=== PATIENT | male | born 1985 | race Caucasian/White ===

== ENCOUNTER 2017-01-25 06:00 | Day surgery (SDC) | payer BC ==
[2017-01-25] MEDS ORDERED: Glycopyrrolate 0.2 MG/ML 2 ML SDV IVPUSH ONE (06:09)
[2017-01-25] MEDS ORDERED: Dextrose 5%-Lactated Ringers 1,000 ML IV SCH (06:15)
[2017-01-25] MEDS ORDERED: fentaNYL 100 MCG/2 ML SDV ONE (07:06)
[2017-01-25] MEDS ORDERED: Midazolam 1 MG/ML 2 ML SDV ONE (07:06)
[2017-01-25] MEDS ORDERED: Propofol 200 MG/20 ML SDV ONE ×2 (07:06→07:29)
[2017-01-25] MEDS ORDERED: Pantoprazole 40 MG Vial IVPUSH ONE (07:38)
--- NOTE | 2017-01-27 13:27 | OR ---
DATE OF PROCEDURE: 01/25/2017 PREOPERATIVE DIAGNOSIS: Probable gastroesophageal reflux disease. POSTOPERATIVE DIAGNOSES: 1. Gastroesophageal reflux disease. 2. Mild antral gastritis. OPERATIVE PROCEDURES: Esophagogastroduodenoscopy with; 1. Biopsies of antrum for CLOtest. 2. Biopsies of esophagogastric junction for histologic evaluation. ANESTHESIA: IV sedation. INDICATION FOR PROCEDURE: This 31-year-old male is presenting with ongoing problems with heartburn as well as irritation of the throat. In the past, he has been on omeprazole intermittently with some relief. The plan is to proceed with upper GI endoscopy for diagnostic purposes. Potential risks including bleeding and perforation were discussed, and the patient wishes to proceed. DETAILS OF PROCEDURE: The patient was taken to the operating room and placed in the left lateral decubitus position. IV sedation was administered, after which the upper GI endoscope was passed orally through the length of the esophagus, then stomach with retroflexion view of the fundus, and thereafter through the pyloric channel and into the proximal duodenum. Findings included some redness and a sense of irritation involving the hypopharynx and larynx. This was especially prominent at the level of the piriform sinus. As one passed through the upper esophageal sphincter, that area as well as the esophageal body were unremarkable. At the EG junction, the patient had some moderate inflammation present. There was no upward extension of the gastroesophageal junction, mucosal line, and perhaps a very small hiatal hernia. No stricturing or gross evidence of neoplasia were seen. Within the stomach, the proximal stomach was unremarkable. The antrum did have some mild redness, but without erosions or ulcers. Pyloric channel and visualized portion of the duodenum to the third and fourth sections of duodenum were unremarkable. At this point, biopsies were obtained from the antrum and sent for CLOtest for H. pylori. Multiple biopsies were then obtained from the esophagogastric junction and sent for histologic evaluation. Minimal bleeding from the biopsy site was seen. The procedure was then concluded. The patient was taken to the recovery room in a satisfactory condition. Plan will be to start the patient on Protonix. He will be given Protonix 40 mg IV in the recovery room and started on Protonix 40 mg daily. We will see the patient back in one month. Long-term treatment options would include continued medical management versus a surgical antireflux procedure. Boo Alex MD /[id number]
== END 2017-01-25 08:54 | disposition home or self-care (01) ==
LOC: JP.SDS 06:00
PROVIDERS: ATTEND Surgery
DX: K29.50 Unspecified chronic gastritis without bleeding (principal); K20.9 Esophagitis, unspecified; F17.210 Nicotine dependence, cigarettes, uncomplicated
CPT/HCPCS: 43239; 87081; 88305; C9113; J2250; J2704; J3010; J7042